=== PATIENT | female | born 1980 | race Caucasian/White ===

== ENCOUNTER 2022-12-21 21:44 | Emergency (ER) | payer MEDICAID | END 2022-12-21 23:05 | disposition home or self-care (01) | LOC: JD.ED 21:44 | DX: L76.82 Other postprocedural complications of skin and subcutaneous tissue (principal); Z91.040 Latex allergy status; Z98.82 Breast implant status | CPT/HCPCS: 99282; 99283 ==

== ENCOUNTER 2023-12-29 15:27 | Emergency (ER) | payer MEDICAID ==
[2023-12-29] MEDS: Sodium Chloride 0.9% 10 ML Syringe FLUSH PRN (16:28)
[2023-12-29 16:30] LABS: HEMATOCRIT 40.6 % (37.0-47.0); HEMOGLOBIN 13.4 gm/dl (12.0-16.0); MEAN CORPUSCULAR HEMOGLOBIN 29.4 pg (28.0-32.0); MEAN PLATELET VOLUME 10.8 fl (9.4-12.3); PLATELET COUNT,PLT 263 K/mm3 (150-400); RED BLOOD CELL COUNT 4.56 M/mm3 (4.10-5.30); WHITE BLOOD CELL COUNT,WBC 11.27 K/mm3 (3.9-11.3)
[2023-12-29 16:49] LABS: INR 0.96; PROTHROMBIN TIME 10.3 SECONDS (9.7-12.0)
[2023-12-29 16:51] LABS: PTT,PARTIAL THROMBOPLSTIN TIME 28.2 SECONDS (21.7-31.4)
[2023-12-29 16:58] LABS: D-DIMER QUANTITATIVE < 0.19 mg/L (0.19-0.50)
[2023-12-29 17:03] LABS: A/G RATIO 1.2 (1-2); ALANINE AMINOTRANSFERASE,ALT 31 U/L (14-59); ALBUMIN 3.6 g/dl (3.4-5.0); ALKALINE PHOSPHATASE 78 U/L (46-116); ANION GAP 11.9 (5-15); ASPARTATE AMNIOTRANSFERASE,AST 17 U/L (15-37); BILIRUBIN TOTAL 0.2 mg/dL (0.2-1.0); BLOOD UREA NITROGEN,BUN 8 mg/dL (7-18); CALCIUM 9.1 mg/dL (8.5-10.1); CARBON DIOXIDE,CO2 26 mEq/L (21-32); CHLORIDE,CL 104 mEq/L (98-107); CREATININE 0.8 mg/dL (0.55-1.02); EST CRCL DRUG DOSING (CG) 68.42 mL/min; ESTIMATED GFR 94 mL/min (>60); GLUCOSE RANDOM 107 mg/dL (70-99); POTASSIUM,K 3.9 mEq/L (3.5-5.1); PROTEIN TOTAL,TP 6.6 g/dl (6.4-8.2); SODIUM,NA 138 mEq/L (136-145)
[2023-12-29 17:04] LABS: BAND PERCENT MAN 0 % (0-10); BASOPHILS PERCENT MAN 0 (0.1-1.2); EOSINOPHILS PERCENT MAN 4 % (0.7-5.8); LYMPHOCYTES % ATYPICAL MANUAL 0 %; LYMPHOCYTES PERCENT MAN 31 % (20-40); MONOCYTES PERCENT MAN 9 % (2-10)
[2023-12-29 17:05] LABS: PLATELET COUNT ESTIMATE ADEQUATE
[2023-12-29 17:07] LABS: TROPONIN I HIGH SENSITIVITY < 4 pg/mL (<=51)
== END 2023-12-29 19:05 | disposition home or self-care (01) ==
LOC: JD.ED 15:27
DX: R06.02 Shortness of breath (principal); Z90.710 Acquired absence of both cervix and uterus; Z91.040 Latex allergy status; Z87.891 Personal history of nicotine dependence
CPT/HCPCS: 36415; 71045; 80053; 83605; 83880; 84484; 85007; 85027; 85379; 85610; 85730; 93005; 94762; 99285; J3490

== ENCOUNTER 2024-11-16 10:23 | Emergency (ER) | payer MEDICAID ==
[2024-11-16] MEDS: Albuterol/Ipratropium 3.0-0.5 MG/3 ML Neb Soln NEB ONE (11:00)
== END 2024-11-16 12:50 | disposition home or self-care (01) ==
LOC: JD.ED 10:23
DX: R06.02 Shortness of breath (principal); Z90.49 Acquired absence of other specified parts of digestive tract; Z79.899 Other long term (current) drug therapy
CPT/HCPCS: 71045; 99285; J7620; 99284; A9270-GY

== ENCOUNTER 2025-06-01 12:30 | Emergency (ER) | payer MEDICAID ==
[2025-06-01] MEDS ORDERED: Sodium Chloride 0.9% 10 ML Syringe FLUSH PRN (14:00)
== END 2025-06-01 14:15 | disposition left against medical advice (07) ==
LOC: JD.ED 12:30
DX: R10.30 Lower abdominal pain, unspecified (principal); Z91.040 Latex allergy status; Z79.899 Other long term (current) drug therapy; Z90.49 Acquired absence of other specified parts of digestive tract
CPT/HCPCS: 99284